=== PATIENT | male | born 1990 | race Caucasian/White ===

== ENCOUNTER 2018-10-07 22:48 | Inpatient (IN) | payer MEDICAID ==
[~2018-10-07] VITALS: Ht 172.7 cm; Wt 76.5 kg
[2018-10-07] MEDS ORDERED: SOD CHLORIDE 0.9% 1,000 ML IV STA (23:18)
[2018-10-07] MEDS ORDERED: SOD CHLORIDE 0.9% 100 ML ONE (23:45)
[2018-10-07] MEDS ORDERED: IOHEXOL 300MG/ML 150 ML BTL ONE (23:45)
[2018-10-08] VITALS (8 sets, daily range): BP systolic 115–131; BP diastolic 59–71; PULSE 60–85; RESP 20; Ht 172.7 cm; Wt 76.5 kg
--- NOTE | 2018-10-08 00:02 | STROKE ---
Date/Time of Note Date/Time of Note DATE: 10/07/18 TIME: 23:36 Patient Information General Patient location: emergency Arrival Date Age 28 Gender male Weight 78.3 kg Clinical Presentation right arm weakness Vital Signs Vital Signs Vital Signs Date Temp Pulse Resp B/P (MAP) Pulse Ox O2 O2 Flow FiO2 Time Delivery Rate 10/07/18 Nasal 4 23:27 Cannula 10/07/18 97.8 94 18 133/87 100 22:54 (102) Patient History Past Medical History None Past Surgical History recent spine surgery Current Medications Allergies: Coded Allergies: No Known Drug Allergies (Verified Allergy, Unknown, 10/07/18) History & Physical History of Present Illness 28 yo M who went to sleep on his couch at 430PM on 10/07 and woke up at about 11:00 PM with flaccid paralysis of the left arm. He denies any other associated symptoms including language deficit, gait imbalance, leg weakness. Review of Systems Constitutional: no symptoms reported All Other Systems: Reviewed and Negative NIH Stroke Scale NIH Stroke Scale [id number] 4 - No movement [id number] Total Score: [id number] Date/Time Recorded DATE: 10/07/18 TIME: 23:36 Submitted By Dayo Kwok t-PA Imaging Review Imaging Reviewed: No Date/Time Imaging Reviewed DATE: 10/07/18 TIME: 23:36 Reason Not Reviewed not processed or available for review t-PA Administration Recommendation: No Weight 78.3 kg Recommedation submitted by Dayo Kwok Recommendations Impression Diagnosis brachial plexus injury Recommendation This is a healthy 28 yo M who fell asleep on his couch and subsequently woke up with flaccid paralysis of his left arm. No other associated weakness. NIHSS was 4 for weakness of the arm. CT studies are pending at this time. TPA was not recommended given that he presented outside the eligible time window, and leading etiology not being ischemic. The patient likely has a brachial plexus injury. Recs: Follow up CT/CTA studies. Low suspicion for dissection. Plan for MRI Brain; if negative, can be discharged with follow up with neurology if symptoms do not improve. DAYO KWOK MD October 07, 2018 23:46
--- NOTE | 2018-10-08 00:37 | ERD ---
ER Documentation Chief Complaint Chief Complaint unble to move left arm/numbness upon waking up around 1800 HPI 28-year-old male no known past medical history other than lumbar disc disease with recent surgical intervention secondary to disc protrusion. The patient states that he went to bed around 4:30 PM. He states that when he woke up just prior to arrival he noticed that he had no sensation to his left arm and could not move his left arm. He denies any slurred speech, facial numbness or tingling. Facial droop. Leg weakness. The only deficit is weakness to the left upper extremity. He states that he was not sleeping weird. He denies any drugs or alcohol. No neck pain, headache fevers or chills or rash. ROS All systems reviewed and are negative except as per history of present illness. Allergies Allergies: Coded Allergies: No Known Drug Allergies (Verified Allergy, Unknown, 10/07/18) PMhx/Soc History of Surgery: Yes (back surgery) Hx Miscellaneous Medical Probl: Yes (herniated disc) Hx Alcohol Use: No Hx Substance Use: No Hx Tobacco Use: No Smoking Status: Never smoker FmHx Family History: No diabetes Physical Exam Vitals Vital Signs Date Temp Pulse Resp B/P (MAP) Pulse Ox O2 O2 Flow FiO2 Time Delivery Rate 10/07/18 Nasal 4 23:27 Cannula 10/07/18 97.8 94 18 133/87 100 22:54 (102) Physical Exam General: Well developed, well nourished, no acute distress Head: Normocephalic, atraumatic. Eyes: Pupils equally reactive, EOM intact ENT: Moist mucous membranes Neck: Supple, no lymphadenopathy Respiratory: Lungs clear bilaterally, no distress Cardiovascular: RRR, no murmurs, rubs, or gallops Abdominal: Soft, non-tender, non-distended, no peritoneal signs : Deferred MSK: No edema, no unilateral swelling Neurologic: Alert and oriented, patient has paralysis and decreased sensation to the left upper extremity. It seems localized to the entirety of the left upper extremity from the shoulder. Unable to abduct at the shoulder. Patient has no facial droop. No other motor weakness to all other extremities. No other focal deficits. NIHSS of 6 Skin: No rash Psych: Normal mood Result Diagram: 10/07/18 2537 10/07/18 5165 Results 24 hrs Laboratory Tests Test 10/07/18 00:55 10/07/18 23:25 Urine Color COLORLESS Urine Clarity CLEAR Urine pH 5.0 Urine Specific [place] 1.027 Urine Ketones NEGATIVE mg/dL Urine Nitrite NEGATIVE mg/dL Urine Bilirubin NEGATIVE mg/dL Urine Urobilinogen NEGATIVE mg/dL Urine Leukocyte Esterase NEGATIVE Jake/ul Urine Microscopic RBC 0 /HPF Urine Microscopic WBC 0 /HPF Urine Hemoglobin 1+ mg/dL Urine Glucose NEGATIVE mg/dL Urine Total Protein NEGATIVE mg/dl White Blood Count 9.7 10^3/ul Red Blood Count 3.89 10^6/ul Hemoglobin 11.6 g/dl Hematocrit 35.8 % Mean Corpuscular Volume 92.0 fl Mean Corpuscular Hemoglobin 29.8 pg Mean Corpuscular Hemoglobin Concent 32.4 g/dl Red Cell Distribution Width 13.5 % Platelet Count 270 10^3/UL Mean Platelet Volume 8.6 fl Immature Granulocytes % 0.400 % Neutrophils % 62.5 % Lymphocytes % 27.4 % Monocytes % 8.3 % Eosinophils % 1.1 % Basophils % 0.3 % Nucleated Red Blood Cells % 0.0 /100WBC Immature Granulocytes # 0.040 10^3/ul Neutrophils # 6.1 10^3/ul Lymphocytes # 2.7 10^3/ul Monocytes # 0.8 10^3/ul Eosinophils # 0.1 10^3/ul Basophils # 0.0 10^3/ul Nucleated Red Blood Cells # 0.0 10^3/ul Prothrombin Time 12.6 Sec Prothrombin Time Ratio 1.0 INR International Normalized Ratio 0.93 Activated Partial Thromboplast Time 25.1 Sec Sodium Level 139 mmol/L Potassium Level 4.2 mmol/L Chloride Level 101 mmol/L Carbon Dioxide Level 28 mmol/L Anion Gap 10 Blood Urea Nitrogen 17 mg/dl Creatinine 0.92 mg/dl Est Glomerular Filtrat Rate mL/min > 60 mL/min Glucose Level 86 mg/dl Hemoglobin A1c 5.0 % Calcium Level 9.5 mg/dl Creatine Kinase 100 IU/L Creatine Kinase Index 2.7 Creatinine Kinase MB (Mass) 2.69 ng/ml Troponin I < 0.012 ng/ml Triglycerides Level 223 mg/dl Cholesterol Level 187 mg/dl LDL Cholesterol, Calculated 79 mg/dl HDL Cholesterol 63 mg/dl Cholesterol/HDL Ratio 2.9 RATIO Ethyl Alcohol Level < 10.0 mg/dl Current Medications Medications Dose Sig/Rosibel Start Time Status Last (Trade) Ordered Route PRN Stop Time Admin Dose Reason Admin Sodium 1,000 ml @ Q1H STAT 10/07/18 DC 10/08/18 Chloride 1,000 mls/hr IV 23:18 10/08/18 00:02 00:17 Sodium 100 ml @ ud STK-MED 10/07/18 DC 10/07/18 Chloride ONCE .ROUTE 23:45 10/07/18 23:47 23:46 Iohexol 150 ml STK-MED 10/07/18 DC 10/07/18 (Omnipaque ONCE .ROUTE 23:45 10/07/18 23:47 300mg/ ml) 23:46 Aspirin 162 mg ONCE ONCE 10/08/18 DC 10/08/18 (Aspirin) PO 01:00 10/08/18 01:18 01:01 Ondansetron 4 mg ER BRIDGE 10/08/18 HCl (Zofran PRN IV 01:30 10/09/18 Inj) NAUSEA/VOMITI 01:29 NG 650 mg ER BRIDGE 10/08/18 Acetaminophen PRN PO 01:30 10/09/18 (Tylenol .MILD PAIN 01:29 Tab) 1-3 OR TEMP Procedures/MDM EKG, MONITORS, & DIAGNOSTIC IMAGING: EKG: I reviewed and interpreted a 12-lead EKG. Rhythm: Normal sinus rhythm Ectopy: None Arrhythmia: None Intervals: No abnormalities ST segments: No elevations or depressions T waves: No contiguous inversions Interpretation: No acute cardiac ischemia Chest x-ray: I reviewed and interpreted a 1 view of the chest Mediastinum: No enlargement Cardiac silhouette: No cardiomegaly Airspace: Clear lung quiñones bilaterally without evidence of pneumothorax Bones: No evidence of fracture Interpretation: No acute cardiopulmonary process CT Brain: No acute process per radiologist read CTA Head and Neck: No acute process per radiologist read PROCEDURES: Splint Application Note: Splint type: sling Extremity: :LUE Indication: paralysis The patient was consented at bedside prior to splint application and states understanding of risks, benefits, and alternatives. The patient was neurovascularly intact prior to and status post application of the splint. The patient tolerated the procedure well and there were no complications. LAB INTERPRETATION: No acute process MEDICAL DECISION MAKING: The patient's presentation is consistent with paralysis of the left upper extremity. Last known well time is 4:30 PM. Given recent surgery and last known well time the patient is not a TPA candidate given presentation outside of a 4-1/2-hour timeframe window. Additionally I believe the patient's symptomatology are more likely related to cervical radiculopathy versus brachial plexus injury rather than acute stroke syndrome. For all these reasons the risks of TPA outweigh any benefits. Additionally I do not believe the patient is a good interventional candidate but CT and CTA will be ordered. Given the patient's neurologic deficit noted within 24 hours a code stroke was initiated. ER COURSE: Stroke assessment and timing: Last known well time: 4:30 PM Stroke code activation: 2319 NIHSS: 6 TPA decision-making: No TPA as documented above presentation outside of the 4-1/2-hour window Interventional decision-making: No interventional candidate given no LVO on CTA Stroke neurologist on-call: Dr. Kwok Critical Care Note: Total time: 30 minutes Indication/Organ System Threat: Acute neurologic deficit and stroke code activation that requires emergent evaluation and assessment to prevent neurologic compromising collapse. I spent the above amount of critical care time with the patient, not including billable procedures. This included chart review, consultations, repeat bedside evaluations, and titration of appropriate medications to prevent cardiopulmonary or respiratory collapse. I kept the patient and/or family informed of laboratory and diagnostic imaging results throughout the emergency room course. The patient CT and CTA are negative. Stroke neurologist evaluation agrees with my assessment likely brachial plexus injury however recommends MRI imaging of the brain and cervical spine. Patient will be admitted for imaging work-up. Patient was immobilized with sling. Aspirin provided. Patient is right-hand dominant. DISPOSITION PLAN: Telemetry admission Accepting care team and consultations: I discussed the current laboratory data, diagnostic imaging and emergency care provided. Admitting team: Dr. Jon Admitting team indication: Insurance directed Departure Diagnosis: Primary Impression: Paralysis of left upper extremity Condition: Stable LISSET HONG MD October 08, 2018 00:37
[2018-10-08] MEDS ORDERED: ASPIRIN 81 MG TAB PO ONE (01:00)
[2018-10-08] MEDS ORDERED: ONDANSETRON 4 MG INJ IV PRN ×2 (01:30→02:00)
[2018-10-08] MEDS ORDERED: ACETAMINOPHEN 325 MG TAB PO PRN ×2 (01:30→02:00)
[2018-10-08] MEDS ORDERED: HYDROCODONE/APAP (5/325) TAB PO PRN (02:00)
[2018-10-08] MEDS ORDERED: ALBUTEROL/IPRATROPIUM (NEB) 3 ML AMP HHN PRN (02:00)
[2018-10-08] MEDS ORDERED: NACL 0.9% 3 ML SYG IV SCH (02:00)
--- NOTE | 2018-10-08 08:14 | HP ---
Date/Time of Note Date/Time of Note DATE: 10/08/18 TIME: 08:07 Assessment/Plan VTE Prophylaxis Pharmacological prophylaxis: heparin Lines/Catheters IV Catheter Type (from Nrsg): Saline Lock Assessment/Plan Assessment/Plan 28-year-old male with a history of herniated disc and back surgery who woke up on the couch with acute onset left upper extremity paralysis worrisome for brachial plexus injury PLAN -Head CT and a CT Dian of the head and neck negative for acute findings -Telemetry neurologist thinks left arm paralysis secondary to brachial plexus injury -Follow-up MRI of the brain -In-house neurology consult -PT/OT eval Result Diagram: 10/08/1852510/08/18525 Results 24hrs Laboratory Tests Test 10/07/18 23:25 10/08/18 05:20 10/08/18 05:26 White Blood Count 9.7 10.3 Red Blood Count 3.89 L 3.86 L Hemoglobin 11.6 L 11.6 L Hematocrit 35.8 L 35.5 L Mean Corpuscular Volume 92.0 92.0 Mean Corpuscular Hemoglobin 29.8 30.1 Mean Corpuscular Hemoglobin Concent 32.4 32.7 Red Cell Distribution Width 13.5 13.5 Platelet Count 270 281 Mean Platelet Volume 8.6 8.8 Immature Granulocytes % 0.400 0.400 Neutrophils % 62.5 61.2 Lymphocytes % 27.4 26.5 Monocytes % 8.3 9.4 Eosinophils % 1.1 2.0 Basophils % 0.3 0.5 Nucleated Red Blood Cells % 0.0 0.0 Immature Granulocytes # 0.040 H 0.040 H Neutrophils # 6.1 6.3 Lymphocytes # 2.7 2.7 Monocytes # 0.8 1.0 H Eosinophils # 0.1 0.2 Basophils # 0.0 0.1 Nucleated Red Blood Cells # 0.0 0.0 Prothrombin Time 12.6 Prothrombin Time Ratio 1.0 INR International Normalized Ratio 0.93 Activated Partial Thromboplast Time 25.1 Sodium Level 139 140 Potassium Level 4.2 4.0 Chloride Level 101 102 Carbon Dioxide Level 28 30 Anion Gap 10 8 Blood Urea Nitrogen 17 15 Creatinine 0.92 0.79 Est Glomerular Filtrat Rate mL/min > 60 > 60 Glucose Level 86 97 Hemoglobin A1c 5.0 5.0 Calcium Level 9.5 9.7 Creatine Kinase 100 103 Creatine Kinase Index 2.7 2.4 Creatinine Kinase MB (Mass) 2.69 H 2.47 H Troponin I < 0.012 < 0.012 Triglycerides Level 223 H 139 Cholesterol Level 187 188 LDL Cholesterol, Calculated 79 99 HDL Cholesterol 63 61 Cholesterol/HDL Ratio 2.9 3.0 Ethyl Alcohol Level < 10.0 H Magnesium Level 1.9 Total Bilirubin 0.4 Direct Bilirubin 0.00 Indirect Bilirubin 0.4 Aspartate Amino Transf (AST/SGOT) 35 Alanine Aminotransferase (ALT/SGPT) 47 Alkaline Phosphatase 52 Total Protein 6.8 Albumin 4.2 Globulin 2.60 Albumin/Globulin Ratio 1.61 Thyroid Stimulating Hormone (TSH) Pending HPI/ROS Admit Date/Time Admit Date/Time October 08, 2018 at 01:14 Hx of Present Illness This is a 28-year-old male with a history of herniated disc and back surgery who presents to the ER complaining of left upper extremity weakness and numbness. Reportedly, patient woke up on the couch with paralysis of left upper extremity. He denied trauma. On my examination, patient has required constant stimulation to keep him awake. He denied slurred speech, facial droop, seizure-like activity, headache or visual disturbance. When he presented to ER, vitals were stable. Head CT and CT Angio of the head and neck negative for acute findings. Patient was evaluated by the telemetry neurologist who felt left upper extremity paralysis secondary to brachial plexus injury. He recommended MRI of the brain and follow-up with neurology. PMH/Family/Social Past Medical History Medical History: other (See HPI) Medications Current Medications Ondansetron HCl (Zofran Inj) 4 mg ER BRIDGE PRN IV NAUSEA/VOMITING; Start 10/08/18 at 01:30; Stop 10/09/18 at 01:29 Acetaminophen (Tylenol Tab) 650 mg ER BRIDGE PRN PO .MILD PAIN 1-3 OR TEMP; Start 10/08/18 at 01:30; Stop 10/09/18 at 01:29 IV Flush (NS 3 ml) 3 ml PER PROTOCOL IV ; Start 10/08/18 at 02:00 Ondansetron HCl (Zofran Inj) 4 mg Q6H PRN IV NAUSEA/VOMITING; Start 10/08/18 at 02:00 Aspirin (Aspirin) 81 mg DAILY PO ; Start 10/08/18 at 09:00 Acetaminophen (Tylenol Tab) 650 mg Q6H PRN PO .PAIN 1-3 OR TEMP; Start 10/08/18 at 02:00 Acetaminophen/ Hydrocodone Bitart (Walker (5/325)) 1 tab Q6H PRN PO .PAIN 4-6; Start 10/08/18 at 02:00 Enoxaparin Sodium (Lovenox) 40 mg DAILY SC ; Start 10/08/18 at 09:00 Albuterol/ Ipratropium (Duoneb) 3 ml Q2H RESP THERAPY PRN HHN SHORTNESS OF BREATH; Start 10/08/18 at 02:00 Coded Allergies: No Known Drug Allergies (Verified Allergy, Unknown, 10/08/18) Past Surgical History Past Surgical Hx: other (HPI) Family History Significant Family History: no pertinent family hx Social History Alcohol Use: none Smoking Status: Never smoker Drug Use: marijuana Exam/Review of Systems Vital Signs Vitals Vital Signs Date Temp Pulse Resp B/P (MAP) Pulse Ox O2 O2 Flow FiO2 Time Delivery Rate 10/08/18 98.0 64 16 109/52 98 Room Air 07:59 (71) 64 10/08/18 4.0 01:49 Exam Constitutional: other (Sleepy, but arousable. At times not answering question appropriately) Head: normocephalic, atraumatic Eyes: EOMI, PERRL Respiratory: clear to auscultation, normal air movement Cardiovascular: regular rate and rhythm, nl pulses Gastrointestinal: soft, non-tender Extremities: other (Left upper extremity paralysis) Neurological: other (Significantly decreased strength in the left upper extremity with a decreased handgrip as well. Sensations are diminished on the left upper extremity to light touch) ALE SANTILLAN MD October 08, 2018 08:14
[2018-10-08] MEDS: ASPIRIN 81 MG TAB PO SCH (09:21)
[2018-10-08] MEDS: ENOXAPARIN 40 MG/0.4 ML SYG SC SCH (09:43)
--- NOTE | 2018-10-08 10:26 | EN ---
Date/Time of Note Date/Time of Note DATE: 10/08/18 TIME: 10:25 Event Note Medicine Medicine Event Note 28-year-old male who was admitted earlier today by my colleague who had presented with left upper extremity paresis. Code stroke was activated in the emergency room, he was seen by telemetry neurology who made a tentative diagnosis of brachial plexus injury and low likelihood of ischemic brain injury. CT scan of the brain and head CT was negative. Neurology does recommend MRI of the brain which is pending. Urine toxicology screen positive only for cannabinoids. TSH was mildly elevated. Patient left upper extremity remains completely paretic. Patient is understandably very anxious about his symptoms. 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 It is unlikely that this has anything to do with his symptoms, but we have to obtain records to see what exactly was done. Will order MRI of C-spine in addition to MRI of the brain. Disposition: follow-up MRI findings, consult in-house neurology, in-house physical therapy, further interventions per course. TINO PAGAN October 08, 2018 10:26
--- NOTE | 2018-10-08 15:18 | CONS ---
Assessment/Plan Assessment/Plan Hospital Course 28 yo M without significant PMH who presents for evaluation of LUE weakness x 1 day... for which neurology is consulted. Most clinically consistent with an acute peripheral nervous system process. A focal [employer] process is less likely, though not yet excluded. CT/CTA H is unremarkable P: Await MRI brain, C spine for further characterization Add ESR, CRP ASA/Lipitor pending the above Cont workup and other medical management per primary PT/OT as necessary Will follow clinically to recommend neurologic studies, as necessary Consultation Date/Type/Reason Admit Date/Time October 08, 2018 at 01:14 Type of Consult Neurology Reason for Consultation LUE weakness Requesting Provider: TINO PAGAN Date/Time of Note DATE: 10/08/18 TIME: 15:18 24 HR Interval Summary Free Text/Dictation 28 yo M with hx of History was obtained from pt and chart review. The pt states that he woke up on the couch and was unable to move his L arm. He does not remember if he slept on it. He denies recent arm or back trauma. He does state that he had a lumbar spine surgery recently. He states that he plays golf and swings with his R arm. He currently denies arm pain. It is elsewhere noted: Hx of Present Illness This is a 28-year-old male with a history of herniated disc and back surgery who presents to the ER complaining of left upper extremity weakness and numbness. Reportedly, patient woke up on the couch with paralysis of left upper extremity. He denied trauma. On my examination, patient has required constant stimulation to keep him awake. He denied slurred speech, facial droop, seizure-like activity, headache or visual disturbance. When he presented to ER, vitals were stable. Head CT and CT Angio of the head and neck negative for acute findings. Patient was evaluated by the telemetry neurologist who felt left upper extremity paralysis secondary to brachial plexus injury. He recommended MRI of the brain and follow-up with neurology. Exam Vital Signs Vitals Vital Signs Date Temp Pulse Resp B/P (MAP) Pulse Ox O2 O2 Flow FiO2 Time Delivery Rate 10/08/18 97.9 65 20 115/71 99 11:16 (86) 10/08/18 Room Air 07:59 10/08/18 4.0 01:49 Exam PE: Gen Appearance: No Apparent Distress HEENT: Normocephalic Cardiovascular: Regular rate Lungs: Clear bilaterally Abdomen: Soft Extremities: Dry NE: The patient was alert and oriented.. Language was normal. Fund of knowledge was normal. Pupils were equal and reactive to light. There was no afferent pupillary defect. Visual quiñones were normal. Funduscopic examination was limited. Ptosis was absent. There was no nystagmus. Facial sensation was normal. Face was symmetric with normal strength. Hearing was intact. Palate movements were normal. Neck strength was normal. There was normal tongue bulk and speed of movement. Tone was normal. Muscle bulk was normal. I did not see fasciculations. R arm and legs were strong. L arm was plegic. Vibration sensation, temperature and pinprick sensation was diminished in the L arm. Rapid alternating movements were normal. There was no dysmetria. There was no intention tremor. Gait was deferred due to bedrest. R arm and leg reflexes were 2+. L arm reflexes were absent. Robles's sign was absent. Plantar responses were flexor. CONNIE VACA NP October 08, 2018 15:18
--- NOTE | 2018-10-08 17:51 | RADRPT ---
Echocardiogram Report Patient Name: Holly ANSARI ID: [id number] : 1990 (28y 5m)Study Date: 10/08/2018 8:20:38 AM Gender: MAccession #: [id number] Tech: Jeremy Patel [facility] Location: [facility] Ref.Physician: ALE SANTILLAN Height(Cm): BSA: Weight(Kg): Quality: AdequateAccount #: Procedures: Echocardiographic Report: Transthoracic echocardiogram with complete 2D, M-Mode, and doppler examination. Indications: Focal weakness. Measurements: 2D/M Mode Doppler Measurement Value Normal Range Measurement Value Normal Range LVIDd 2D 4.1 [ 4.2 - 5.8 ] cm AV Peak Santiago 1.4 [ 100.0 - 170.0 ] cm/sec LVIDs 2D 2.8 [ 2.5 - 4.0 ] cm AV Peak PG 8.0 [ 2.0 - 9.0 ] mmHg LVPWd 2D 0.9 [ 0.6 - 1.0 ] cm LVOT Peak Santiago 1.1 [ 70.0 - 110.0 ] cm/sec IVSd 2D 1.0 [ 0.6 - 1.0 ] cm LVOT Peak PG 5.0 [ 2.0 - 6.0 ] mmHg AoR Diam 2D 2.6 [ 2.6 - 3.4 ] cm MV E Peak Santiago 1.0 [ 60.0 - 130.0 ] cm/sec EDV 2D 75.5 [ 62.0 - 150.0 ] ml MV A Peak Santiago 0.6 [ 100.0 - 120.0 ] cm/sec ESV 2D 28.3 [ 21.0 - 61.0 ] ml MV E/A 1.7 [ 0.8 - 1.5 ] ratio EF 2D 62.5 [ 52.0 - 72.0 ] percent MV Decel Time 201 [ 104 - 258 ] msec LA Dimen 2D 3.2 [ 3.0 - 4.0 ] cm Lat E` Santiago 0.2 [ 10.0 - 15.0 ] cm/sec Lateral E/E` 5.6 [ 1.0 - 2.0 ] ratio MV E/A 1.7 [ 0.8 - 1.5 ] ratio TR Peak Santiago 2.5 [ 100.0 - 280.0 ] cm/sec TR Peak PG 25.0 mmHg RVSP 28.0 [ 10.0 - 36.0 ] mmHg Findings: Left Ventricle: Normal left ventricular systolic function. Normal left ventricular cavity size. Normal left ventricular wall thickness. Ejection fraction is visually estimated at 60 %. Tissue Doppler/Mitral Doppler indices are consistent with pseudonormalization with mildly elevated left atrial pressure (Stage II diastolic dysfunction). Right Ventricle: Normal right ventricular size. Normal right ventricular systolic function. Left Atrium: The left atrium is normal in size. Right Atrium: There is mild enlargement of right atrium. Mitral Valve: Mild mitral leaflet calcification. Mild mitral annular calcification. Trace mitral regurgitation. Aortic Valve: No hemodynamically significant aortic stenosis by doppler. Aortic cusps appear mildly calcified. Tricuspid Valve: Normal appearance of the tricuspid valve. Estimated peak PA systolic pressure 28 mmHg. There is mild tricuspid regurgitation. Pericardium: Normal pericardium with no significant pericardial effusion. Aorta: Normal aortic root. IVC: Normal size and normal respiratory collapse consistent with normal right atrial pressure. Conclusions: Normal left ventricular systolic function. Normal left ventricular cavity size. Normal left ventricular wall thickness. Ejection fraction is visually estimated at 60 %. Tissue Doppler/Mitral Doppler indices are consistent with pseudonormalization with mildly elevated left atrial pressure (Stage II diastolic dysfunction). There is mild enlargement of right atrium. Mild mitral leaflet calcification. Mild mitral annular calcification. Trace mitral regurgitation. Normal appearance of the tricuspid valve. Estimated peak PA systolic pressure 28 mmHg. There is mild tricuspid regurgitation. Electronically Signed By: Kyler Byrne 2018-10-08 17:51:20 PDT
[2018-10-08] MEDS: ATORVASTATIN 40 MG TAB PO SCH (21:00)
[2018-10-09] VITALS (9 sets, daily range): BP systolic 118–122; BP diastolic 56–66; PULSE 64–97; RESP 18–20
[2018-10-09] MEDS: ASPIRIN 81 MG TAB PO SCH (08:48)
[2018-10-09] MEDS: ENOXAPARIN 40 MG/0.4 ML SYG SC SCH (09:39)
--- NOTE | 2018-10-09 13:13 | PN ---
Date/Time of Note Date/Time of Note DATE: 10/09/18 TIME: 13:11 Assessment/Plan VTE Prophylaxis Risk score (from Nsg)>0 risk: 0 SCD applied (from Ns): No SCD contraindicated: low risk/ambulating Pharmacological prophylaxis: NA/contraindicated Pharm contraindication: low risk/ambulating Lines/Catheters IV Catheter Type (from Nrs): Saline Lock Assessment/Plan Hospital Course S: no changes, LUE remains paretic O : General: A&O x3, answering questions appropriately HEENT: NC/ AT. PERRL. EOM intact Neck: supple CVS: S1, S2, RRR. no murmurs. no pain on chest wall palpation Lungs: CTA b/l. no wheezing or rhonchi Abd: soft, nontender, +BS Ext: LUE completely paretic skin: no rashes assessment and plan: 28-year-old male who was admitted earlier today by my colleague who had presented with left upper extremity paresis. Code stroke was activated in the emergency room, he was seen by telemetry neurology who made a tentative diagnosis of brachial plexus injury and low likelihood of ischemic brain injury. CT scan of the brain and head CT was negative. Neurology does recommend MRI of the brain which is pending. Urine toxicology screen positive only for cannabinoids. TSH was mildly elevated. Patient left upper extremity remains completely paretic. Patient is understandably very anxious about his symptoms. Patient recently had back surgery at the 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 It is unlikely that this has anything to do with his symptoms, records reviewed, no concerning findings noted Will order MRI of L shoulder Disposition: f/u shoulder MRI, final neurology recs, OT eval Patient likely needs EMG and peripheral senior contract specialist, may need to go to [facility] Provide sling steroids? Result Diagram: 10/09/1845 10/09/18 0545 Results 24hrs Laboratory Tests Test 10/09/18 05:45 White Blood Count 5.4 # Red Blood Count 3.69 L Hemoglobin 11.0 L Hematocrit 34.1 L Mean Corpuscular Volume 92.4 Mean Corpuscular Hemoglobin 29.8 Mean Corpuscular Hemoglobin Concent 32.3 Red Cell Distribution Width 13.2 Platelet Count 274 Mean Platelet Volume 8.9 Immature Granulocytes % 0.400 Neutrophils % 39.0 Lymphocytes % 43.1 Monocytes % 11.5 H Eosinophils % 5.6 Basophils % 0.4 Nucleated Red Blood Cells % 0.0 Immature Granulocytes # 0.020 Neutrophils # 2.1 Lymphocytes # 2.3 Monocytes # 0.6 Eosinophils # 0.3 Basophils # 0.0 Nucleated Red Blood Cells # 0.0 Erythrocyte Sedimentation Rate 5 Sodium Level 141 Potassium Level 4.7 Chloride Level 101 Carbon Dioxide Level 32 H Anion Gap 8 Blood Urea Nitrogen 14 Creatinine 0.72 Est Glomerular Filtrat Rate mL/min > 60 Glucose Level 83 Calcium Level 9.4 Phosphorus Level 6.2 H Magnesium Level 2.1 C-Reactive Protein 0.6 Exam/Review of Systems Exam Vitals Vital Signs Date Temp Pulse Resp B/P (MAP) Pulse Ox O2 O2 Flow FiO2 Time Delivery Rate 10/09/18 90 12:01 10/09/18 98.3 20 120/66 100 11:32 (84) 10/08/18 Room Air 07:59 10/08/18 4.0 01:49 Results Results 24hrs Laboratory Tests Test 10/09/18 05:45 White Blood Count 5.4 # Red Blood Count 3.69 L Hemoglobin 11.0 L Hematocrit 34.1 L Mean Corpuscular Volume 92.4 Mean Corpuscular Hemoglobin 29.8 Mean Corpuscular Hemoglobin Concent 32.3 Red Cell Distribution Width 13.2 Platelet Count 274 Mean Platelet Volume 8.9 Immature Granulocytes % 0.400 Neutrophils % 39.0 Lymphocytes % 43.1 Monocytes % 11.5 H Eosinophils % 5.6 Basophils % 0.4 Nucleated Red Blood Cells % 0.0 Immature Granulocytes # 0.020 Neutrophils # 2.1 Lymphocytes # 2.3 Monocytes # 0.6 Eosinophils # 0.3 Basophils # 0.0 Nucleated Red Blood Cells # 0.0 Erythrocyte Sedimentation Rate 5 Sodium Level 141 Potassium Level 4.7 Chloride Level 101 Carbon Dioxide Level 32 H Anion Gap 8 Blood Urea Nitrogen 14 Creatinine 0.72 Est Glomerular Filtrat Rate mL/min > 60 Glucose Level 83 Calcium Level 9.4 Phosphorus Level 6.2 H Magnesium Level 2.1 C-Reactive Protein 0.6 Medications Medication Current Medications IV Flush (NS 3 ml) 3 ml PER PROTOCOL IV ; Start 10/08/18 at 02:00 Ondansetron HCl (Zofran Inj) 4 mg Q6H PRN IV NAUSEA/VOMITING; Start 10/08/18 at 02:00 Aspirin (Aspirin) 81 mg DAILY PO Last administered on 10/09/18at 08:48; Admin Dose 81 MG; Start 10/08/18 at 09:00 Acetaminophen (Tylenol Tab) 650 mg Q6H PRN PO .PAIN 1-3 OR TEMP; Start 10/08/18 at 02:00 Acetaminophen/ Hydrocodone Bitart ([place] (5/325)) 1 tab Q6H PRN PO .PAIN 4-6; Start 10/08/18 at 02:00 Enoxaparin Sodium (Lovenox) 40 mg DAILY SC Last administered on 10/09/18at 09:39; Admin Dose 40 MG; Start 10/08/18 at 09:00 Albuterol/ Ipratropium (Duoneb) 3 ml Q2H RESP THERAPY PRN HHN SHORTNESS OF BREATH; Start 10/08/18 at 02:00 Atorvastatin Calcium (Lipitor) 40 mg HS PO ; Start 10/08/18 at 21:00 Lorazepam (Ativan) 1 mg ONCE ONCE IV ; Start 10/09/18 at 13:30; Stop 10/09/18 at 13:31 TINO PAGAN October 09, 2018 13:13
[2018-10-09] MEDS ORDERED: LORAZEPAM 2 MG INJ IV ONE (13:30)
--- NOTE | 2018-10-09 14:26 | CONS ---
Assessment/Plan Assessment/Plan Hospital Course 28 yo M without significant PMH who presents for evaluation of LUE weakness x 1 day... for which neurology is consulted. Most clinically consistent with an acute peripheral nervous system process. A focal COMMUNICATIONS TOWER CLIMBER process is less likely, though not yet excluded. CT/CTA H is unremarkable MRI brain/C spine is unremarkable. ESR, CRP wnl P: Await MRI L shoulder Cont workup and other medical management per primary PT/OT as necessary Recommend EMG/NCS as outpatient Will follow clinically Consultation Date/Type/Reason Admit Date/Time October 08, 2018 at 01:14 Type of Consult Neurology Reason for Consultation LUE weakness Requesting Provider: TINO PAGAN Date/Time of Note DATE: 10/09/18 TIME: 14:25 24 HR Interval Summary Free Text/Dictation Continues acute care. S/p MRI brain, C-spine. Discharged from PT/OT. Pt states that he is still unable to move his arm and that his sensation has only very slightly improved. Exam Vital Signs Vitals Vital Signs Date Temp Pulse Resp B/P (MAP) Pulse Ox O2 O2 Flow FiO2 Time Delivery Rate 10/09/18 90 12:01 10/09/18 98.3 20 120/66 100 11:32 (84) 10/08/18 Room Air 07:59 10/08/18 4.0 01:49 Exam PE: Gen Appearance: No Apparent Distress HEENT: Normocephalic Cardiovascular: Regular rate Lungs: Clear bilaterally Abdomen: Soft Extremities: Dry NE: The patient was alert and oriented.. Language was normal. Fund of knowledge was normal. Pupils were equal and reactive to light. There was no afferent pupillary defect. Visual quiñones were normal. Funduscopic examination was limited. Ptosis was absent. There was no nystagmus. Facial sensation was normal. Face was symmetric with normal strength. Hearing was intact. Palate movements were normal. Neck strength was normal. There was normal tongue bulk and speed of movement. Tone was normal. Muscle bulk was normal. I did not see fasciculations. R arm and legs were strong. L arm was plegic. Vibration sensation was diminished in the L pinky and middle finger and thumb. Pinprick sensation was diminished in the L arm from the fingertips of the L hand up to just above the nipple line. Rapid alternating movements were normal. There was no dysmetria. There was no intention tremor. Gait was deferred due to bedrest. R arm and leg reflexes were 2+. L arm reflexes were absent. Robles's sign was absent. Plantar responses were flexor. CONNIE VACA NP October 09, 2018 14:26
--- NOTE | 2018-10-09 16:55 | CONS ---
Assessment/Plan Assessment/Plan Assessment/Plan (Daily) Sudden monoplegia concerning for brachial plexus injury or spinal vascular malformation. Time course is unusual for non-traumatic etiology. Could be brachial plexitis ([place] syndrome), but EMG is critical in diagnosis. 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 He has never had this before and it has not changed since it started. He had some tingling initially, but now is quite numb in the arm, but does not have anesthesia. He denies trauma or shoulder pain. Past Medical History Medical History: other (See HPI) Home Meds No Active Prescriptions or Reported Meds Medications Current Medications IV Flush (NS 3 ml) 3 ml PER PROTOCOL IV ; Start 10/08/18 at 02:00 Ondansetron HCl (Zofran Inj) 4 mg Q6H PRN IV NAUSEA/VOMITING; Start 10/08/18 at 02:00 Aspirin (Aspirin) 81 mg DAILY PO Last administered on 10/09/18at 08:48; Admin Dos e 81 MG; Start 10/08/18 at 09:00 Acetaminophen (Tylenol Tab) 650 mg Q6H PRN PO .PAIN 1-3 OR TEMP; Start 10/08/18 at 02:00 Acetaminophen/ Hydrocodone Bitart ([place] (5/325)) 1 tab Q6H PRN PO .PAIN 4-6; Start 10/08/18 at 02:00 Enoxaparin Sodium (Lovenox) 40 mg DAILY SC Last administered on 10/09/18at 09:39; Admin Dose 40 MG; Start 10/08/18 at 09:00 Albuterol/ Ipratropium (Duoneb) 3 ml Q2H RESP THERAPY PRN HHN SHORTNESS OF BREATH; Start 10/08/18 at 02:00 Atorvastatin Calcium (Lipitor) 40 mg HS PO ; Start 10/08/18 at 21:00 Allergies: Coded Allergies: No Known Drug Allergies (Verified Allergy, Unknown, 10/08/18) Past Surgical History Past Surgical Hx: other (HPI) Social History Alcohol Use: none Smoking Status: Never smoker Drug Use: marijuana Exam/Review of Systems Exam Vitals Vital Signs Date Temp Pulse Resp B/P (MAP) Pulse Ox O2 O2 Flow FiO2 Time Delivery Rate 10/09/18 98.3 78 20 122/61 98 15:20 (81) 10/08/18 Room Air 07:59 10/08/18 4.0 01:49 Exam 0/5 in LUE 5/5 otherwise numbness throughout LUE shoulder ROM intact No movement when arm dropped from height Results Result Diagram: 10/09/18 0545 10/09/18 0545 Results 24hrs Laboratory Tests Test 10/09/18 05:45 White Blood Count 5.4 # Red Blood Count 3.69 L Hemoglobin 11.0 L Hematocrit 34.1 L Mean Corpuscular Volume 92.4 Mean Corpuscular Hemoglobin 29.8 Mean Corpuscular Hemoglobin Concent 32.3 Red Cell Distribution Width 13.2 Platelet Count 274 Mean Platelet Volume 8.9 Immature Granulocytes % 0.400 Neutrophils % 39.0 Lymphocytes % 43.1 Monocytes % 11.5 H Eosinophils % 5.6 Basophils % 0.4 Nucleated Red Blood Cells % 0.0 Immature Granulocytes # 0.020 Neutrophils # 2.1 Lymphocytes # 2.3 Monocytes # 0.6 Eosinophils # 0.3 Basophils # 0.0 Nucleated Red Blood Cells # 0.0 Erythrocyte Sedimentation Rate 5 Sodium Level 141 Potassium Level 4.7 Chloride Level 101 Carbon Dioxide Level 32 H Anion Gap 8 Blood Urea Nitrogen 14 Creatinine 0.72 Est Glomerular Filtrat Rate mL/min > 60 Glucose Level 83 Calcium Level 9.4 Phosphorus Level 6.2 H Magnesium Level 2.1 C-Reactive Protein 0.6 Imaging Imaging No abnormalities on MRI of brain and spine or CTA head/neck Medications Medication Current Medications IV Flush (NS 3 ml) 3 ml PER PROTOCOL IV ; Start 10/08/18 at 02:00 Ondansetron HCl (Zofran Inj) 4 mg Q6H PRN IV NAUSEA/VOMITING; Start 10/08/18 at 02:00 Aspirin (Aspirin) 81 mg DAILY PO Last administered on 10/09/18at 08:48; Admin Dose 81 MG; Start 10/08/18 at 09:00 Acetaminophen (Tylenol Tab) 650 mg Q6H PRN PO .PAIN 1-3 OR TEMP; Start 10/08/18 at 02:00 Acetaminophen/ Hydrocodone Bitart ([place] (5/325)) 1 tab Q6H PRN PO .PAIN 4-6; Start 10/08/18 at 02:00 Enoxaparin Sodium (Lovenox) 40 mg DAILY SC Last administered on 10/09/18at 09:39; Admin Dose 40 MG; Start 10/08/18 at 09:00 Albuterol/ Ipratropium (Duoneb) 3 ml Q2H RESP THERAPY PRN HHN SHORTNESS OF BREATH; Start 10/08/18 at 02:00 Atorvastatin Calcium (Lipitor) 40 mg HS PO ; Start 10/08/18 at 21:00 SALLY PADRON MD October 09, 2018 16:55
[2018-10-09] MEDS: ATORVASTATIN 40 MG TAB PO SCH (20:09)
[2018-10-10] VITALS (7 sets, daily range): BP systolic 105–128; BP diastolic 52–70; PULSE 63–82; RESP 18–20
[2018-10-10] MEDS: ASPIRIN 81 MG TAB PO SCH (08:34)
[2018-10-10] MEDS: ENOXAPARIN 40 MG/0.4 ML SYG SC SCH (08:38)
--- NOTE | 2018-10-10 13:41 | PN ---
Date/Time of Note Date/Time of Note DATE: 10/10/18 TIME: 13:38 Assessment/Plan VTE Prophylaxis Risk score (from Nsg)>0 risk: 0 SCD applied (from Nsg): No SCD contraindicated: low risk/ambulating Pharmacological prophylaxis: NA/contraindicated Pharm contraindication: low risk/ambulating Lines/Catheters IV Catheter Type (from Nrsg): Saline Lock Assessment/Plan Hospital Course S: no changes, LUE remains paretic O : General: A&O x3, answering questions appropriately HEENT: NC/ AT. PERRL. EOM intact Neck: supple CVS: S1, S2, RRR. no murmurs. no pain on chest wall palpation Lungs: CTA b/l. no wheezing or rhonchi Abd: soft, nontender, +BS Ext: LUE completely paretic skin: no rashes assessment and plan: 28-year-old male who was admitted earlier today by my colleague who had presented with left upper extremity paresis. Code stroke was activated in the emergency room, he was seen by telemetry neurology who made a tentative diagnosis of brachial plexus injury and low likelihood of ischemic brain injury. CT scan of the brain and head CT was negative. Neurology does recommend MRI of the brain which is pending. Urine toxicology screen positive only for cannabinoids. TSH was mildly elevated. Patient left upper extremity remains completely paretic. Patient is understandably very anxious about his symptoms. 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 It is unlikely that this has anything to do with his symptoms, records reviewed, no concerning findings noted MRI shoulder reviewed -no new concerning findings -appreciate nsg review abd recommendations Disposition: patient is open to trying steroids, I explained that it may not improve his symptoms and may actually make subsequent diagnosis a little bit difficult, in that if he gets an EMG in the near future, it may be nonconclusive. But in the setting of possible inflammation it may help. Patient wants to try this. He is requesting to be observed in-house, day while he is on steroids to see if there is improvement by tomorrow. Will monitor Result Diagram: 10/09/18 4745 10/09/18 4912 Exam/Review of Systems Exam Vitals Vital Signs Date Temp Pulse Resp B/P (MAP) Pulse Ox O2 O2 Flow FiO2 Time Delivery Rate 10/10/18 98.3 63 20 119/63 95 11:42 (81) 10/10/18 Room Air 04:48 10/08/18 4.0 01:49 Intake and Output 10/09/18 10/09/18 10/10/18 1515:00 23:00 07:00 IntakeIntake Total 850 ml 400 ml BalanceBalance 850 ml 400 ml Medications Medication Current Medications IV Flush (NS 3 ml) 3 ml PER PROTOCOL IV ; Start 10/08/18 at 02:00 Ondansetron HCl (Zofran Inj) 4 mg Q6H PRN IV NAUSEA/VOMITING; Start 10/08/18 at 02:00 Aspirin (Aspirin) 81 mg DAILY PO Last administered on 10/10/18at 08:34; Admin Dose 81 MG; Start 10/08/18 at 09:00 Acetaminophen (Tylenol Tab) 650 mg Q6H PRN PO .PAIN 1-3 OR TEMP; Start 10/08/18 at 02:00 Acetaminophen/ Hydrocodone Bitart ([place] (5/325)) 1 tab Q6H PRN PO .PAIN 4-6; Start 10/08/18 at 02:00 Enoxaparin Sodium (Lovenox) 40 mg DAILY SC Last administered on 10/10/18at 08:38; Admin Dose 40 MG; Start 10/08/18 at 09:00 Albuterol/ Ipratropium (Duoneb) 3 ml Q2H RESP THERAPY PRN HHN SHORTNESS OF BREATH; Start 10/08/18 at 02:00 Atorvastatin Calcium (Lipitor) 40 mg HS PO ; Start 10/08/18 at 21:00 Methylprednisolone Sodium Succinate 250 mg/Dextrose 50 ml @ 100 mls/hr ONCE ONCE IV ; Start 10/10/18 at 14:00; Stop 10/10/18 at 14:29 TINO PAGAN October 10, 2018 13:41
[2018-10-10] MEDS ORDERED: METHYLPRED. NA SUCC 250 MG in DEXTROSE 5% 50 ML IV ONE (14:00)
--- NOTE | 2018-10-10 14:39 | CONS ---
Assessment/Plan Assessment/Plan Hospital Course 28 yo M without significant PMH who presents for evaluation of LUE weakness x 1 day... for which neurology is consulted. Most clinically consistent with an acute peripheral nervous system process. A focal SUPERVISOR WIRE ROPE FABRICATION process is less likely, though not yet excluded. CT/CTA H is unremarkable MRI L shoulder is unrevealing. MRI brain/C spine is unremarkable. ESR, CRP wnl P: Cont workup and other medical management per primary PT/OT as necessary Recommend EMG/NCS as outpatient Will follow clinically Consultation Date/Type/Reason Admit Date/Time October 08, 2018 at 01:14 Type of Consult Neurology Reason for Consultation LUE weakness Requesting Provider: TINO PAGAN Date/Time of Note DATE: 10/10/18 TIME: 14:39 24 HR Interval Summary Free Text/Dictation Continues acute care. S/p MRI L shoulder. Pt states that he is still unable to move his L arm. Exam Vital Signs Vitals Vital Signs Date Temp Pulse Resp B/P (MAP) Pulse Ox O2 O2 Flow FiO2 Time Delivery Rate 10/10/18 98.3 63 20 119/63 95 11:42 (81) 10/10/18 Room Air 04:48 10/08/18 4.0 01:49 Intake and Output 10/09/18 10/09/18 10/10/18 1515:00 23:00 07:00 IntakeIntake Total 850 ml 400 ml BalanceBalance 850 ml 400 ml Exam PE: Gen Appearance: No Apparent Distress HEENT: Normocephalic Cardiovascular: Regular rate Lungs: Clear bilaterally Abdomen: Soft Extremities: Dry NE: The patient was alert and oriented.. Language was normal. Fund of knowledge was normal. Pupils were equal and reactive to light. There was no afferent pupillary defect. Visual quiñones were normal. Funduscopic examination was limited. Ptosis was absent. There was no nystagmus. Facial sensation was normal. Face was symmetric with normal strength. Hearing was intact. Palate movements were normal. Neck strength was normal. There was normal tongue bulk and speed of movement. Tone was normal. Muscle bulk was normal. I did not see fasciculations. R arm and legs were strong. L arm was plegic. Vibration sensation was diminished in the L pinky and middle finger and thumb. Pinprick sensation was diminished in the L arm from the fingertips of the L hand up to just above the nipple line. Rapid alternating movements were normal. There was no dysmetria. There was no intention tremor. Gait was deferred due to bedrest. R arm and leg reflexes were 2+. L arm reflexes were absent. Robles's sign was absent. Plantar responses were flexor. CONNIE VACA NP October 10, 2018 14:39
[2018-10-10] MEDS: ATORVASTATIN 40 MG TAB PO SCH (20:40)
[2018-10-11 02:00] VITALS: BP 115/72; PULSE 60; RESP 18
[2018-10-11 08:00] VITALS: BP 95/59; PULSE 60; RESP 19
[2018-10-11] MEDS: ASPIRIN 81 MG TAB PO SCH (09:03)
[2018-10-11] MEDS: ENOXAPARIN 40 MG/0.4 ML SYG SC SCH (09:05)
[2018-10-11] MEDS ORDERED: PRED10TA PO (12:52)
--- NOTE | 2018-10-11 12:55 | PDOCDIS ---
Discharge Instructions CONDITION [id number] Patient Condition: [id number] Stable HOME CARE INSTRUCTIONS: [id number] Diet Instructions: [id number] Regular ACTIVITY: [id number] Activity Restrictions: [id number] No Restrictions FOLLOW UP/APPOINTMENTS Follow-up Plan You need to follow-up with someone who specializes in peripheral nerve injury and abnormalities. My recommendation is that you go to [facility] using the information below. [facility] * Directions * Address: [address] [place] [address] * You should also follow-up with a primary care doctor as soon as you can. I know Dr. Rome is receiving patients, you can call his office to see if you can follow-up with him. Name, Degree: Diego Rome MD Specialty: Internal Medicine Comments: Office Address: [address] [place] [address] [place] [id number] Office Office You may also call your insurance company to assign one to you. Review your medication list with your nurse before leaving and if you need new prescriptions please let your nurse know. I may have made changes to your home medications or given you new prescriptions, please let your primary doctor know as well. Stay compliant with your medications and report any side effects to your PCP or pharmacist. Return to the ER if you have any concerns and cannot reach your doctors or call your insurance company, they usually have a nurse that can help you. . TINO PAGAN October 11, 2018 12:55
[2018-10-11] MEDS ORDERED: METHYLPREDNISOLONE 125 MG INJ IV ONE (13:00)
[2018-10-11] MEDS ORDERED: METHYLPREDNISOLONE 40 MG INJ IV ONE (13:30)
[2018-10-11 14:00] VITALS: BP 112/70; PULSE 62; RESP 18
--- NOTE | 2018-10-11 15:54 | CONS ---
Assessment/Plan Assessment/Plan Hospital Course 28 yo M without significant PMH who presents for evaluation of LUE weakness x 1 day... for which neurology is consulted. Most clinically consistent with an acute peripheral nervous system process. A focal PECAN GATHERER process is less likely, though not yet excluded. CT/CTA H is unremarkable MRI L shoulder is unrevealing. MRI brain/C spine is unremarkable. ESR, CRP wnl P: Cont workup and other medical management per primary PT/OT as necessary Recommend EMG/NCS as outpatient Will follow Consultation Date/Type/Reason Admit Date/Time October 08, 2018 at 01:14 Type of Consult Neurology Reason for Consultation LUE weakness Requesting Provider: TINO PAGAN Date/Time of Note DATE: 10/11/18 TIME: 15:54 24 HR Interval Summary Free Text/Dictation Continues acute care. Pt still endorses inability to move L arm. Exam Vital Signs Vitals Vital Signs Date Temp Pulse Resp B/P (MAP) Pulse Ox O2 O2 Flow FiO2 Time Delivery Rate 10/11/18 97.9 62 18 112/70 98 Room Air 14:00 (84) 10/08/18 4.0 01:49 Intake and Output 10/10/18 10/10/18 10/11/18 1515:00 23:00 07:00 IntakeIntake Total 750 ml BalanceBalance 750 ml Exam PE: Gen Appearance: No Apparent Distress HEENT: Normocephalic Cardiovascular: Regular rate Lungs: Clear bilaterally Abdomen: Soft Extremities: Dry NE: The patient was alert and oriented.. Language was normal. Fund of knowledge was normal. Pupils were equal and reactive to light. There was no afferent pupillary defect. Visual quiñones were normal. Funduscopic examination was limited. Ptosis was absent. There was no nystagmus. Facial sensation was normal. Face was symmetric with normal strength. Hearing was intact. Palate movements were normal. Neck strength was normal. There was normal tongue bulk and speed of movement. Tone was normal. Muscle bulk was normal. I did not see fasciculations. R arm and legs were strong. L arm was plegic. Vibration sensation was diminished in the L pinky and middle finger and thumb. Pinprick sensation was diminished in the L arm from the fingertips of the L hand up to just above the nipple line. Rapid alternating movements were normal. There was no dysmetria. There was no intention tremor. Gait was deferred due to bedrest. R arm and leg reflexes were 2+. L arm reflexes were absent. Robles's sign was absent. Plantar responses were flexor. CONNIE VACA NP October 11, 2018 15:54
--- NOTE | 2018-10-14 20:02 | DS ---
Date/Time of Note Date/Time of Note DATE: 10/14/18 TIME: 20:00 Discharge Summary Admission/Discharge Info Admit Date/Time October 08, 2018 at 01:14 Discharge Date/Time October 11, 2018 at 16:15 Discharge Diagnosis 28 yo M without significant PMH who presents for evaluation of LUE weakness x 1 day... for which neurology is consulted. Most clinically consistent with an acute peripheral nervous system process Procedures CT/CTA H is unremarkable MRI L shoulder is unrevealing. MRI brain/C spine is unremarkable. ESR, CRP wnl Hospital Course 28-year-old male who was admitted earlier today by my colleague who had presented with left upper extremity paresis. Code stroke was activated in the emergency room, he was seen by telemetry neurology who made a tentative diagnosis of brachial plexus injury and low likelihood of ischemic brain injury. CT scan of the brain and head CT was negative. Neurology does recommend MRI of the brain which is pending. Urine toxicology screen positive only for cannabinoids. TSH was mildly elevated. Patient left upper extremity remains completely paretic. Patient is understandably very anxious about his symptoms. 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 It is unlikely that this has anything to do with his symptoms, records reviewed, no concerning findings noted MRI shoulder reviewed -no new concerning findings -appreciate nsg review abd recommendations PT/OT as necessary Recommend EMG/NCS as outpatient Home Meds Active Scripts Prednisone* (Prednisone*) 10 Mg Tab, 10 MG PO DAILY, #21 TAB take 6 pills tomorrow take 5 pills on the next day take 4 pills on the next day take 3 pills on the next day take 2 pills on the next day take 1 pill on the next day then stop Prov:TINO PAGAN. 10/11/18 Follow-up Plan You need to follow-up with someone who specializes in peripheral nerve injury and abnormalities. My recommendation is that you go to [facility] using the information below. [facility] - [facility] * Directions * Address: [address], [place] [address] * You should also follow-up with a primary care doctor as soon as you can. I know Dr. Rome is receiving patients, you can call his office to see if you can follow-up with him. Name, Degree: Diego Rome MD Specialty: Internal Medicine Comments: Office Address: [address] [place] [address] [place] [address] Office Office You may also call your insurance company to assign one to you. Review your medication list with your nurse before leaving and if you need new prescriptions please let your nurse know. I may have made changes to your home medications or given you new prescriptions, please let your primary doctor know as well. Stay compliant with your medications and report any side effects to your PCP or pharmacist. Return to the ER if you have any concerns and cannot reach your doctors or call your insurance company, they usually have a nurse that can help you. . Primary Care Provider Care Physician No Primary Time spent on discharge: > 30 minutes TINO PAGAN October 14, 2018 20:02
== END 2018-10-11 16:15 | disposition left against medical advice (07) | DRG 74 ==
LOC: E/R 22:48 → 6WM 10-08 01:14 → 2NE 10-10 23:29 → PP2 10-10 23:39
PROVIDERS: ADMIT Internal Medicine; ATTEND Family Medicine
DX: S14.3XXA Injury of brachial plexus, initial encounter (principal); G81.04 Flaccid hemiplegia affecting left nondominant side; G54.5 Neuralgic amyotrophy; X58.XXXA Exposure to other specified factors, initial encounter; Y93.84 Activity, sleeping; Y92.019 Unspecified place in single-family (private) house as the place of occurrence of the external cause; Y99.8 Other external cause status; R29.704 NIHSS score 4; M51.26 Other intervertebral disc displacement, lumbar region; Z79.82 Long term (current) use of aspirin
CPT/HCPCS: 36415; 70450; 70496; 70498; 70553; 71045; 72156; 73221; 80048; 80053; 80061; 80307; 81001; 82550; 82553; 83036; 83735; 84100; 84443; 84484; 85025; 85610; 85651; 85730; 86140; 92610; 93005; 93306; 97161; 97166; J1650; J2920; J2930; J7030; Q9967

== ENCOUNTER 2018-11-07 03:35 | Inpatient (IN) | payer MEDICAID, OTHER ==
[~2018-11-07] VITALS: Ht 172.7 cm; Wt 75.3 kg
[~2018-11-07 03:35] MED LIST: PRED10TA PO
[2018-11-07] MEDS ORDERED: VANCOMYCIN 1 GM (PMX) 250 ML IVPB STA (04:03)
[2018-11-07] MEDS ORDERED: ONDANSETRON 4 MG INJ IV STA ×2 (04:03→06:24)
[2018-11-07] MEDS ORDERED: ACETAMINOPHEN 325 MG TAB PO STA (04:03)
[2018-11-07] MEDS ORDERED: morphine 4 MG/ML VIAL IV STA (04:03)
[2018-11-07] MEDS ORDERED: PIPER-TAZO 3.375 GM IV (PMX) 100 ML IVPB STA (04:03)
[2018-11-07] MEDS ORDERED: SODIUM CHLORIDE 0.9% 1L BAG IV* STA ×2 (04:03)
[2018-11-07] MEDS ORDERED: ONDANSETRON 4 MG INJ IV PRN ×2 (05:00→06:00)
[2018-11-07] MEDS ORDERED: ACETAMINOPHEN 325 MG TAB PO PRN ×2 (05:00→06:00)
[2018-11-07] MEDS ORDERED: hydrALAzine 20 MG INJ IV PRN (06:00)
[2018-11-07] MEDS ORDERED: MAGNESIUM HYDROXIDE 30ML CUP PO PRN (06:00)
[2018-11-07] MEDS ORDERED: NACL 0.9% 3 ML SYG IV SCH (06:00)
[2018-11-07] MEDS ORDERED: LORAZEPAM 2 MG INJ IV PRN (06:00)
[2018-11-07] MEDS ORDERED: HYDROCODONE/APAP (5/325) TAB PO PRN (06:00)
[2018-11-07] MEDS ORDERED: ALBUTEROL/IPRATROPIUM (NEB) 3 ML AMP HHN PRN (06:00)
[2018-11-07] MEDS ORDERED: NITROGLYCERIN (SL) 0.4 MG TAB SL PRN (06:00)
[2018-11-07] MEDS ORDERED: VANCOMYCIN IV PER PHARMACY XX SCH (06:00)
[2018-11-07] MEDS ORDERED: DOCUSATE SODIUM 100 MG CAP PO PRN (06:00)
--- NOTE | 2018-11-07 06:16 | HP ---
Date/Time of Note Date/Time of Note DATE: 11/07/18 TIME: 06:15 Assessment/Plan VTE Prophylaxis SCD applied (from Nsg): Yes Pharmacological prophylaxis: other Lines/Catheters IV Catheter Type (from Nrsg): Saline Lock Assessment/Plan Hospital Course 28-year-old male no significant past medical history who presents with buttock pain and findings of a buttock abscess, along with JOAO and elevated troponin. 1. Buttock abscess: There is drainage again white blood cell count elevated 21,000. -We will place the patient on broad-spectrum antibiotics, obtain surgery and infectious disease consults. -Follow-up final culture results, Tylenol PRN pain fevers, IV fluids, pain control medications 2. Elevated troponin: Patient denies any chest pain, but on admission his troponin first 1 is 0.131. Patient himself denies any prior history of any stroke or heart attacks, no apparent family history of any coronary artery disease. Of note his creatinine is 1.58 -We will trend his troponins, high-dose aspirin, morphine as needed, Atrovent and as needed. -We will obtain cardiology consult and check echocardiogram 3. Renal insufficiency: Again his creatinine is 1.58. Baseline appears to be 0.72 -We will continue IV fluids, monitor BUN/creatinine levels. -If there are any worsening symptoms, we will obtain renal consult at that time Result Diagram: 11/07/18 0410 11/07/18 0410 Results 24hrs Laboratory Tests Test 11/07/18 04:10 11/07/18 04:39 White Blood Count 21.5 #H Red Blood Count 4.22 L Hemoglobin 12.5 L Hematocrit 37.5 L Mean Corpuscular Volume 88.9 Mean Corpuscular Hemoglobin 29.6 Mean Corpuscular Hemoglobin Concent 33.3 Red Cell Distribution Width 12.3 Platelet Count 339 # Mean Platelet Volume 8.5 Immature Granulocytes % 2.600 H Neutrophils % 76.2 Lymphocytes % 6.0 L Monocytes % 14.4 H Eosinophils % 0.1 Basophils % 0.7 Nucleated Red Blood Cells % 0.0 Immature Granulocytes # 0.550 H Neutrophils # 16.4 H Lymphocytes # 1.3 Monocytes # 3.1 H Eosinophils # 0.0 Basophils # 0.2 H Nucleated Red Blood Cells # 0.0 Prothrombin Time 14.0 Prothrombin Time Ratio 1.1 INR International Normalized Ratio 1.07 Activated Partial Thromboplast Time 27.2 Sodium Level 138 Potassium Level 4.1 Chloride Level 93 L Carbon Dioxide Level 27 Anion Gap 18 H Blood Urea Nitrogen 15 Creatinine 1.58 H Est Glomerular Filtrat Rate mL/min 53 L Glucose Level 93 Calcium Level 9.8 Total Bilirubin 0.7 Direct Bilirubin 0.00 Indirect Bilirubin 0.7 Aspartate Amino Transf (AST/SGOT) 22 Alanine Aminotransferase (ALT/SGPT) 24 Alkaline Phosphatase 75 Troponin I 0.131 *H Total Protein 7.3 Albumin 4.3 Globulin 3.00 Albumin/Globulin Ratio 1.43 POC Venous Lactate 3.8 *H HPI/ROS Admit Date/Time Admit Date/Time Hx of Present Illness 28-year-old male no significant past medical history who presents with buttock pain. Patient states the symptoms have been going on for the last 5 to 6 days. He said some positive chills and some sweats. He is also had some nonbilious nonbloody vomiting and nausea symptoms. In the last 24 hours he is also noticed some drainage from the buttock area dark serous fluid mixed with greenish pus patient denies any trauma to the area no prior history of this. When he came in today he was found with elevated white blood cell count 21.5 the ER has made a call out to the surgeon to come evaluate the patient to see about a possible incision and drainage that needs to be done given the size of an abscess that is been found on physical exam. Patient denies any upper or lower GI bleeding, diarrhea constipation, chest pain or shortness of breath. PMH/Family/Social Past Medical History Medications Current Medications Ondansetron HCl (Zofran Inj) 4 mg BRIDGE ORDER PRN IV NAUSEA/VOMITING; Start 11/07/18 at 05:00; Stop 11/08/18 at 04:59 Acetaminophen (Tylenol Tab) 650 mg ER BRIDGE PRN PO .MILD PAIN 1-3 OR TEMP; Start 11/07/18 at 05:00; Stop 11/08/18 at 04:59 IV Flush (NS 3 ml) 3 ml PER PROTOCOL IV ; Start 11/07/18 at 06:00 Ondansetron HCl (Zofran Inj) 4 mg Q6H PRN IV NAUSEA/VOMITING; Start 11/07/18 at 06:00 Acetaminophen (Tylenol Tab) 650 mg Q6H PRN PO .PAIN 1-3 OR TEMP; Start 11/07/18 at 06:00 Acetaminophen/ Hydrocodone Bitart ([place] (5/325)) 1 tab Q6H PRN PO .MOD PAIN 4- 6; Start 11/07/18 at 06:00 Morphine Sulfate (morphine) 2 mg Q4H PRN IV .SEVERE PAIN 7-10; Start 11/07/18 at 06:00 Docusate Sodium (Colace) 100 mg Q12H PRN PO .CONSTIPATION; Start 11/07/18 at 06:00 Magnesium Hydroxide (Milk Of Mag) 30 ml DAILY PRN PO .CONSTIPATION; Start 11/07/18 at 06:00 Lorazepam (Ativan) 0.5 mg Q6H PRN IV ANXIETY; Start 11/07/18 at 06:00; Status UNV Sodium Chloride 1,000 ml @ 125 mls/hr Q8H IV ; Start 11/07/18 at 05:50; Status UNV Albuterol/ Ipratropium (Duoneb) 3 ml Q4H RESP THERAPY PRN HHN SHORTNESS OF BREATH; Start 11/07/18 at 06:00; Status UNV Piperacillin Sod/ Tazobactam Sod 100 ml @ 200 mls/hr Q6 IVPB ; Start 11/07/18 at 06:00; Status UNV Vancomycin HCl (Vanco Iv Per Pharmacy) VANCOMYCIN PER PHARMACY NOTE XX ; Start 11/07/18 at 06:00; Status UNV Hydralazine HCl (Apresoline) 10 mg Q6H PRN IV ELEVATED BLOOD PRESSURE; Start 11/07/18 at 06:00; Status UNV Nitroglycerin (Nitroglycerin (Sl Tab) 0.4 Mg) 1 tab Q5M PRN SL ANGINA; Start 11/07/18 at 06:00; Status UNV Aspirin (Ecotrin) 325 mg DAILY PO ; Start 11/07/18 at 09:00; Status UNV Coded Allergies: No Known Drug Allergies (Verified Allergy, Unknown, 10/08/18) Family History Significant Family History: no pertinent family hx Social History Alcohol Use: none Smoking Status: Never smoker Drug Use: none Exam/Review of Systems Vital Signs Vitals Vital Signs Date Temp Pulse Resp B/P (MAP) Pulse Ox O2 O2 Flow FiO2 Time Delivery Rate 11/07/18 98.1 78 98/71 (80) 100 Room Air 05:22 11/07/18 22 03:37 Exam Exam Gen: Lying in bed, in mild distress but answers questions Head: Atraumatic. Eyes: Normal Conjunctiva. ENT: Normal External Ears, Nose and Mouth. Neck: Full range of motion. No meningismus. Resp: Clear to auscultation bilaterally. Cardio: Regular rate and rhythm. Abd: Soft, nondistended, normal bowel sounds, non tender. Ext: No lower extremity bilaterally Neuro: No focal deficits SAMANTHA MARTIN Nov 07, 2018 06:16
[2018-11-07] MEDS ORDERED: SOD CHLORIDE 0.9% 1,000 ML IV STA (06:24)
[2018-11-07] MEDS ORDERED: FENTAnyl 50 MCG/ML VIAL IV ONE (06:30)
[2018-11-07] MEDS: SOD CHLORIDE 0.9% 1,000 ML IV SCH ×3 (08:14→21:50)
[2018-11-07] MEDS: morphine 2 MG INJ IV PRN ×4 (08:22→22:17)
[2018-11-07] MEDS ORDERED: ASPIRIN (EC) 325 MG TAB PO SCH (09:00)
[2018-11-07 10:43] VITALS: BP 102/54; PULSE 63; RESP 20
[2018-11-07 10:57] VITALS: Ht 172.7 cm; Wt 75.3 kg
[2018-11-07] MEDS: PIPER-TAZO 3.375 GM IV (PMX) 100 ML IVPB SCH ×2 (11:52→20:59)
[2018-11-07 12:21] VITALS: PULSE 74
--- NOTE | 2018-11-07 14:28 | CONS ---
Assessment/Plan Assessment/Plan Hospital Course (Demo Recall) Elevated troponin: Unclear etiology. EF normal one month prior. Mild trop 0.13 and trended down. The way the pt describes his buttock abscess and the pain associated with it, he may have had local rhabdomyolysis from the pain and since the abscess drained and the pressure released, maybe the CK had time to normalize and the trop took longer with the renal failure. Highly doubt CAD. Will check a limited echo to make sure nothing has changed in the interim but otherwise no workup. Buttock abscess: was on steroid taper Acute renal failure: from sepsis and could have had rhabdo at some point as well though now normal CK Brachial plexus injury: arm still nonfunctional but can move his fingers now -limited echo -antibiotics -IVF Consultation Date/Type/Reason Admit Date/Time Date of Consultation: Nov 07, 2018 Type of Consult Cardiology Reason for Consultation Elevated troponin Requesting Provider: SAMANTHA MARTIN Date/Time of Note DATE: 11/07/18 TIME: 13:46 Hx of Present Illness 28 yo M with no prior medical history who was here one month ago with left arm paralysis diagnosed with brachial plexus injury after falling asleep for a prolonged time. He went home on steroids. About 2 weeks ago he started to have buttock pain and eventually swelling and extreme pain. He came in for evaluation but the abscess had started to drain and is now significantly better. He was noted to have renal failure, leukocytosis, lactic acidosis. He was started on IV antibiotics and IVF and feels much better. No prior cardiac disease or chest pain with or without exertion. per HPI Past Medical History per HPI Home Meds Discontinued Scripts Prednisone* (Prednisone*) 10 Mg Tab, 10 MG PO DAILY, #21 TAB take 6 pills tomorrow take 5 pills on the next day take 4 pills on the next day take 3 pills on the next day take 2 pills on the next day take 1 pill on the next day then stop Prov:LATASHATINO Chowdary 10/11/18 Medications Current Medications Ondansetron HCl (Zofran Inj) 4 mg BRIDGE ORDER PRN IV NAUSEA/VOMITING Last administered on 11/07/18at 08:22; Admin Dose 4 MG; Start 11/07/18 at 05:00; Stop 11/08/18 at 04:59 Acetaminophen (Tylenol Tab) 650 mg ER BRIDGE PRN PO .MILD PAIN 1-3 OR TEMP; Start 11/07/18 at 05:00; Stop 11/08/18 at 04:59 IV Flush (NS 3 ml) 3 ml PER PROTOCOL IV ; Start 11/07/18 at 06:00 Ondansetron HCl (Zofran Inj) 4 mg Q6H PRN IV NAUSEA/VOMITING; Start 11/07/18 at 06:00 Acetaminophen (Tylenol Tab) 650 mg Q6H PRN PO .PAIN 1-3 OR TEMP; Start 11/07/18 at 06:00 Acetaminophen/ Hydrocodone Bitart ([place] (5/325)) 1 tab Q6H PRN PO .MOD PAIN 4- 6; Start 11/07/18 at 06:00 Morphine Sulfate (morphine) 2 mg Q4H PRN IV .SEVERE PAIN 7-10 Last administered on 11/07/18at 12:50; Admin Dose 2 MG; Start 11/07/18 at 06:00 Docusate Sodium (Colace) 100 mg Q12H PRN PO .CONSTIPATION; Start 11/07/18 at 06:00 Magnesium Hydroxide (Milk Of Mag) 30 ml DAILY PRN PO .CONSTIPATION; Start 11/07/18 at 06:00 Lorazepam (Ativan) 0.5 mg Q6H PRN IV ANXIETY; Start 11/07/18 at 06:00 Sodium Chloride 1,000 ml @ 125 mls/hr Q8H IV Last administered on 11/07/18at 08:14; Admin Dose 125 MLS/HR; Start 11/07/18 at 05:50 Albuterol/ Ipratropium (Duoneb) 3 ml Q4H RESP THERAPY PRN HHN SHORTNESS OF BREATH; Start 11/07/18 at 06:00 Piperacillin Sod/ Tazobactam Sod 100 ml @ 200 mls/hr Q6 IVPB Last administered on 11/07/18at 11:52; Admin Dose 200 MLS/HR; Start 11/07/18 at 12:00 Vancomycin HCl (Vanco Iv Per Pharmacy) VANCOMYCIN PER PHARMACY NOTE XX ; Start 11/07/18 at 06:00 Hydralazine HCl (Apresoline) 10 mg Q6H PRN IV ELEVATED BLOOD PRESSURE; Start 11/07/18 at 06:00 Nitroglycerin (Nitroglycerin (Sl Tab) 0.4 Mg) 1 tab Q5M PRN SL ANGINA; Start 11/07/18 at 06:00 Aspirin (Ecotrin) 325 mg DAILY PO Last administered on 11/07/18at 08:14; Admin Dose 325 MG; Start 11/07/18 at 09:00 Vancomycin HCl 250 ml @ 125 mls/hr Q12H IVPB ; Start 11/07/18 at 15:00 Allergies: Coded Allergies: No Known Drug Allergies (Verified Allergy, Unknown, 11/07/18) Social History Alcohol Use: none Smoking Status: Current some day smoker Drug Use: none Exam/Review of Systems Vital Signs Vitals Vital Signs Date Temp Pulse Resp B/P (MAP) Pulse Ox O2 O2 Flow FiO2 Time Delivery Rate 11/07/18 74 12:21 11/07/18 97.8 20 102/54 98 Room Air 10:43 (70) Exam Constitutional: alert, oriented Psych: no complaints, nl mood/affect Head: normocephalic, atraumatic Neck: supple; No jvd Respiratory: clear to auscultation; No crackles/rales Cardiovascular: regular rate and rhythm; No edema, No systolic murmur Gastrointestinal: soft, non-tender; No distended Neurological: nl mental status, nl speech Labs Result Diagram: 11/07/18 0410 11/07/18 0410 Results 24hrs Laboratory Tests Test 11/07/18 04:10 11/07/18 04:39 11/07/18 07:22 11/07/18 07:23 White Blood Count 21.5 #H Red Blood Count 4.22 L Hemoglobin 12.5 L Hematocrit 37.5 L Mean Corpuscular Volume 88.9 Mean Corpuscular 29.6 Hemoglobin Mean Corpuscular 33.3 Hemoglobin Concent Red Cell Distribution 12.3 Width Platelet Count 339 # Mean Platelet Volume 8.5 Immature Granulocytes % 2.600 H Neutrophils % 76.2 Lymphocytes % 6.0 L Monocytes % 14.4 H Eosinophils % 0.1 Basophils % 0.7 Nucleated Red Blood 0.0 Cells % Immature Granulocytes # 0.550 H Neutrophils # 16.4 H Lymphocytes # 1.3 Monocytes # 3.1 H Eosinophils # 0.0 Basophils # 0.2 H Nucleated Red Blood 0.0 Cells # Prothrombin Time 14.0 Prothrombin Time Ratio 1.1 INR International 1.07 Normalized Ratio Activated 27.2 Partial Thromboplast Time Sodium Level 138 Potassium Level 4.1 Chloride Level 93 L Carbon Dioxide Level 27 Anion Gap 18 H Blood Urea Nitrogen 15 Creatinine 1.58 H Est Glomerular Filtrat 53 L Rate mL/min Glucose Level 93 Calcium Level 9.8 Total Bilirubin 0.7 Direct Bilirubin 0.00 Indirect Bilirubin 0.7 Aspartate Amino 22 Transf (AST/SGOT) Alanine 24 Aminotransferase (ALT/SG PT) Alkaline Phosphatase 75 Troponin I 0.131 *H 0.118 Total Protein 7.3 Albumin 4.3 Globulin 3.00 Albumin/Globulin Ratio 1.43 POC Venous Lactate 3.8 *H Creatine Kinase 129 Creatine Kinase Index 1.8 Creatinine Kinase MB 2.33 (Mass) Lactic Acid Level 2.1 *H Free Thyroxine 1.35 Test 11/07/18 09:06 11/07/18 10:25 11/07/18 10:56 Lactic Acid Level 1.6 Urine Color YELLOW Urine Clarity CLOUDY A Urine pH 5.0 Urine Specific [place] 1.015 Urine Ketones 1+ H Urine Nitrite NEGATIVE Urine Bilirubin NEGATIVE Urine Urobilinogen 1+ H Urine Leukocyte Esterase NEGATIVE Urine Microscopic RBC 1 Urine Microscopic WBC 7 H Urine Hyaline Casts FEW A Urine Mucus FEW A Urine Hemoglobin NEGATIVE Urine Glucose NEGATIVE Urine Total Protein NEGATIVE Creatine Kinase 139 Creatine Kinase Index 1.8 Creatinine Kinase MB 2.56 H (Mass) Troponin I 0.056 Medications Medications Current Medications Ondansetron HCl (Zofran Inj) 4 mg BRIDGE ORDER PRN IV NAUSEA/VOMITING Last administered on 11/07/18at 08:22; Admin Dose 4 MG; Start 11/07/18 at 05:00; Stop 11/08/18 at 04:59 Acetaminophen (Tylenol Tab) 650 mg ER BRIDGE PRN PO .MILD PAIN 1-3 OR TEMP; Start 11/07/18 at 05:00; Stop 11/08/18 at 04:59 IV Flush (NS 3 ml) 3 ml PER PROTOCOL IV ; Start 11/07/18 at 06:00 Ondansetron HCl (Zofran Inj) 4 mg Q6H PRN IV NAUSEA/VOMITING; Start 11/07/18 at 06:00 Acetaminophen (Tylenol Tab) 650 mg Q6H PRN PO .PAIN 1-3 OR TEMP; Start 11/07/18 at 06:00 Acetaminophen/ Hydrocodone Bitart ([place] (5/325)) 1 tab Q6H PRN PO .MOD PAIN 4- 6; Start 11/07/18 at 06:00 Morphine Sulfate (morphine) 2 mg Q4H PRN IV .SEVERE PAIN 7-10 Last administered on 11/07/18at 12:50; Admin Dose 2 MG; Start 11/07/18 at 06:00 Docusate Sodium (Colace) 100 mg Q12H PRN PO .CONSTIPATION; Start 11/07/18 at 06:00 Magnesium Hydroxide (Milk Of Mag) 30 ml DAILY PRN PO .CONSTIPATION; Start 11/07/18 at 06:00 Lorazepam (Ativan) 0.5 mg Q6H PRN IV ANXIETY; Start 11/07/18 at 06:00 Sodium Chloride 1,000 ml @ 125 mls/hr Q8H IV Last administered on 11/07/18at 08:14; Admin Dose 125 MLS/HR; Start 11/07/18 at 05:50 Albuterol/ Ipratropium (Duoneb) 3 ml Q4H RESP THERAPY PRN HHN SHORTNESS OF BREATH; Start 11/07/18 at 06:00 Piperacillin Sod/ Tazobactam Sod 100 ml @ 200 mls/hr Q6 IVPB Last administered on 11/07/18at 11:52; Admin Dose 200 MLS/HR; Start 11/07/18 at 12:00 Vancomycin HCl (Vanco Iv Per Pharmacy) VANCOMYCIN PER PHARMACY NOTE XX ; Start 11/07/18 at 06:00 Hydralazine HCl (Apresoline) 10 mg Q6H PRN IV ELEVATED BLOOD PRESSURE; Start 11/07/18 at 06:00 Nitroglycerin (Nitroglycerin (Sl Tab) 0.4 Mg) 1 tab Q5M PRN SL ANGINA; Start 11/07/18 at 06:00 Aspirin (Ecotrin) 325 mg DAILY PO Last administered on 11/07/18at 08:14; Admin Dose 325 MG; Start 11/07/18 at 09:00 Vancomycin HCl 250 ml @ 125 mls/hr Q12H IVPB ; Start 11/07/18 at 15:00 DALILA CHANCE Nov 07, 2018 13:58
[2018-11-07] MEDS ORDERED: VANCOMYCIN 1 GM 250 ML IVPB SCH (15:00)
[2018-11-07 15:03] VITALS: BP 124/56; PULSE 85; RESP 20
--- NOTE | 2018-11-07 15:36 | CONS ---
DATE OF ADMISSION: 11/07/2018 DATE OF CONSULTATION: 11/07/2018 TYPE OF CONSULTATION: Infectious disease. REASON FOR CONSULTATION: Antibiotic management. HISTORY OF PRESENT ILLNESS: Homer Moore is a 28-year-old male with no significant past medical history, who presents with buttock pain and findings of a buttock abscess. He also has acute renal failure and an elevated troponin. The patient stated his symptoms began for the last 5 or 6 days. H e had some chills and sweats. He also had some nausea and vomiting. In the last 24 hours, he noted drainage from the buttock area with dark serous fluid mixed with greenish pus. He denies any trauma to the area. No prior history of drug abuse. On admission, his white count was 21.5, H and H 12.5 a nd 37.5, platelet count 339,000. BUN and creatinine 15/1.58 with 76% neutrophils. A call was made t o a surgeon to come evaluate the patient for a possible incision and drainage, given the size of the abscess which is quite large. The patient denies any upper or lower GI bleed. PAST MEDICAL HISTORY: Operations as outlined. FAMILY HISTORY: Noncontributory. SOCIAL HISTORY: He does not smoke, drink or abuse drugs. ALLERGIES: None to penicillin, sulfa or foods. MEDICATIONS: Per chart. REVIEW OF SYSTEMS: As per HPI. PHYSICAL EXAMINATION: GENERAL: The patient is lying in bed in mild distress. He is awake, responsive, in mild distress. VITAL SIGNS: Stable. He is afebrile. SKIN: Without generalized rash. HEENT: Within normal limits. NECK: Supple. LYMPH NODES: None palpable. CHEST: Decreased breath sounds at the bases. HEART: Without murmur or gallop. ABDOMEN: Soft, nontender, without organosplenomegaly or masses. EXTREMITIES: Without cyanosis, clubbing, or edema. The patient has significant pain in the buttock area. Chest x-ray: No acute infiltrates. PLAN: Patient was begun on vancomycin and Zosyn. Blood cultures were done. Urine cultures were don e. Not sure if wound cultures were done which we will order. I will dictate my findings to the hosp italists. Dictated By: MAO FONTAINE MD, JD/FELICITA Conf#: [id number] DID#: [id number] CC: SAMANTHA MARTIN;*EndCC*
--- NOTE | 2018-11-07 16:20 | PN ---
Date/Time of Note Date/Time of Note DATE: 11/07/18 TIME: 16:17 Assessment/Plan VTE Prophylaxis SCD applied (from Nsg): Yes Pharmacological prophylaxis: NA/contraindicated Pharm contraindication: surgical contra Lines/Catheters IV Catheter Type (from Nrs): Saline Lock Assessment/Plan Hospital Course 28-year-old male no significant past medical history who presents with buttock pain and findings of a buttock abscess, along with JOAO and elevated troponin. 1. Sepsis secondary to buttock abscess: There is drainage again white blood cell count elevated 21,000. -Continue broad-spectrum antibiotics, ID and surgery consultations obtained -Follow-up final culture results, Tylenol PRN pain fevers, IV fluids, pain control medications 2. Elevated troponin: Patient denies any chest pain, but on admission his troponin first 1 is 0.131. Patient himself denies any prior history of any stroke or heart attacks, no apparent family history of any coronary artery disease. Of note his creatinine is 1.58 -Troponins trending down, elevation may have been secondary to rhabdomyolysis in setting of mild acute kidney injury -Cardiology consultation appreciated 3. Acute kidney injury likely secondary to sepsis -We will continue IV fluids, monitor BUN/creatinine levels. -If there are any worsening symptoms, we will obtain renal consult Prophylaxis: SCDs Result Diagram: 11/07/1840911/07/180 Results 24hrs Laboratory Tests Test 11/07/18 04:10 11/07/18 04:39 11/07/18 07:22 11/07/18 07:23 White Blood Count 21.5 #H Red Blood Count 4.22 L Hemoglobin 12.5 L Hematocrit 37.5 L Mean Corpuscular Volume 88.9 Mean Corpuscular 29.6 Hemoglobin Mean Corpuscular 33.3 Hemoglobin Concent Red Cell Distribution 12.3 Width Platelet Count 339 # Mean Platelet Volume 8.5 Immature Granulocytes % 2.600 H Neutrophils % 76.2 Lymphocytes % 6.0 L Monocytes % 14.4 H Eosinophils % 0.1 Basophils % 0.7 Nucleated Red Blood 0.0 Cells % Immature Granulocytes # 0.550 H Neutrophils # 16.4 H Lymphocytes # 1.3 Monocytes # 3.1 H Eosinophils # 0.0 Basophils # 0.2 H Nucleated Red Blood 0.0 Cells # Prothrombin Time 14.0 Prothrombin Time Ratio 1.1 INR International 1.07 Normalized Ratio Activated 27.2 Partial Thromboplast Time Sodium Level 138 Potassium Level 4.1 Chloride Level 93 L Carbon Dioxide Level 27 Anion Gap 18 H Blood Urea Nitrogen 15 Creatinine 1.58 H Est Glomerular Filtrat 53 L Rate mL/min Glucose Level 93 Calcium Level 9.8 Total Bilirubin 0.7 Direct Bilirubin 0.00 Indirect Bilirubin 0.7 Aspartate Amino 22 Transf (AST/SGOT) Alanine 24 Aminotransferase (ALT/SG PT) Alkaline Phosphatase 75 Troponin I 0.131 *H 0.118 Total Protein 7.3 Albumin 4.3 Globulin 3.00 Albumin/Globulin Ratio 1.43 POC Venous Lactate 3.8 *H Creatine Kinase 129 Creatine Kinase Index 1.8 Creatinine Kinase MB 2.33 (Mass) Lactic Acid Level 2.1 *H Free Thyroxine 1.35 Test 11/07/18 09:06 11/07/18 10:25 11/07/18 10:56 Lactic Acid Level 1.6 Urine Color YELLOW Urine Clarity CLOUDY A Urine pH 5.0 Urine Specific [place] 1.015 Urine Ketones 1+ H Urine Nitrite NEGATIVE Urine Bilirubin NEGATIVE Urine Urobilinogen 1+ H Urine Leukocyte Esterase NEGATIVE Urine Microscopic RBC 1 Urine Microscopic WBC 7 H Urine Hyaline Casts FEW A Urine Mucus FEW A Urine Hemoglobin NEGATIVE Urine Glucose NEGATIVE Urine Total Protein NEGATIVE Creatine Kinase 139 Creatine Kinase Index 1.8 Creatinine Kinase MB 2.56 H (Mass) Troponin I 0.056 Subjective 24 Hr Interval Summary Musculoskeletal: bone/joint pain Exam/Review of Systems Exam Vitals Vital Signs Date Temp Pulse Resp B/P (MAP) Pulse Ox O2 O2 Flow FiO2 Time Delivery Rate 11/07/18 97.6 85 20 124/56 100 Room Air 15:03 (78) Constitutional: alert, oriented Respiratory: clear to auscultation Cardiovascular: regular rate and rhythm Gastrointestinal: soft; No distended Musculoskeletal: nl extremities to inspection Results Results 24hrs Laboratory Tests Test 11/07/18 04:10 11/07/18 04:39 11/07/18 07:22 11/07/18 07:23 White Blood Count 21.5 #H Red Blood Count 4.22 L Hemoglobin 12.5 L Hematocrit 37.5 L Mean Corpuscular Volume 88.9 Mean Corpuscular 29.6 Hemoglobin Mean Corpuscular 33.3 Hemoglobin Concent Red Cell Distribution 12.3 Width Platelet Count 339 # Mean Platelet Volume 8.5 Immature Granulocytes % 2.600 H Neutrophils % 76.2 Lymphocytes % 6.0 L Monocytes % 14.4 H Eosinophils % 0.1 Basophils % 0.7 Nucleated Red Blood 0.0 Cells % Immature Granulocytes # 0.550 H Neutrophils # 16.4 H Lymphocytes # 1.3 Monocytes # 3.1 H Eosinophils # 0.0 Basophils # 0.2 H Nucleated Red Blood 0.0 Cells # Prothrombin Time 14.0 Prothrombin Time Ratio 1.1 INR International 1.07 Normalized Ratio Activated 27.2 Partial Thromboplast Time Sodium Level 138 Potassium Level 4.1 Chloride Level 93 L Carbon Dioxide Level 27 Anion Gap 18 H Blood Urea Nitrogen 15 Creatinine 1.58 H Est Glomerular Filtrat 53 L Rate mL/min Glucose Level 93 Calcium Level 9.8 Total Bilirubin 0.7 Direct Bilirubin 0.00 Indirect Bilirubin 0.7 Aspartate Amino 22 Transf (AST/SGOT) Alanine 24 Aminotransferase (ALT/SG PT) Alkaline Phosphatase 75 Troponin I 0.131 *H 0.118 Total Protein 7.3 Albumin 4.3 Globulin 3.00 Albumin/Globulin Ratio 1.43 POC Venous Lactate 3.8 *H Creatine Kinase 129 Creatine Kinase Index 1.8 Creatinine Kinase MB 2.33 (Mass) Lactic Acid Level 2.1 *H Free Thyroxine 1.35 Test 11/07/18 09:06 11/07/18 10:25 11/07/18 10:56 Lactic Acid Level 1.6 Urine Color YELLOW Urine Clarity CLOUDY A Urine pH 5.0 Urine Specific [place] 1.015 Urine Ketones 1+ H Urine Nitrite NEGATIVE Urine Bilirubin NEGATIVE Urine Urobilinogen 1+ H Urine Leukocyte Esterase NEGATIVE Urine Microscopic RBC 1 Urine Microscopic WBC 7 H Urine Hyaline Casts FEW A Urine Mucus FEW A Urine Hemoglobin NEGATIVE Urine Glucose NEGATIVE Urine Total Protein NEGATIVE Creatine Kinase 139 Creatine Kinase Index 1.8 Creatinine Kinase MB 2.56 H (Mass) Troponin I 0.056 Medications Medication Current Medications Ondansetron HCl (Zofran Inj) 4 mg BRIDGE ORDER PRN IV NAUSEA/VOMITING Last administered on 11/07/18at 08:22; Admin Dose 4 MG; Start 11/07/18 at 05:00; Stop 11/08/18 at 04:59 Acetaminophen (Tylenol Tab) 650 mg ER BRIDGE PRN PO .MILD PAIN 1-3 OR TEMP; Start 11/07/18 at 05:00; Stop 11/08/18 at 04:59 IV Flush (NS 3 ml) 3 ml PER PROTOCOL IV ; Start 11/07/18 at 06:00 Ondansetron HCl (Zofran Inj) 4 mg Q6H PRN IV NAUSEA/VOMITING; Start 11/07/18 at 06:00 Acetaminophen (Tylenol Tab) 650 mg Q6H PRN PO .PAIN 1-3 OR TEMP; Start 11/07/18 at 06:00 Acetaminophen/ Hydrocodone Bitart ([place] (5/325)) 1 tab Q6H PRN PO .MOD PAIN 4- 6; Start 11/07/18 at 06:00 Morphine Sulfate (morphine) 2 mg Q4H PRN IV .SEVERE PAIN 7-10 Last administered on 11/07/18at 12:50; Admin Dose 2 MG; Start 11/07/18 at 06:00 Docusate Sodium (Colace) 100 mg Q12H PRN PO .CONSTIPATION; Start 11/07/18 at 06:00 Magnesium Hydroxide (Milk Of Mag) 30 ml DAILY PRN PO .CONSTIPATION; Start 11/07/18 at 06:00 Lorazepam (Ativan) 0.5 mg Q6H PRN IV ANXIETY; Start 11/07/18 at 06:00 Sodium Chloride 1,000 ml @ 125 mls/hr Q8H IV Last administered on 11/07/18at 08:14; Admin Dose 125 MLS/HR; Start 11/07/18 at 05:50 Albuterol/ Ipratropium (Duoneb) 3 ml Q4H RESP THERAPY PRN HHN SHORTNESS OF BREATH; Start 11/07/18 at 06:00 Piperacillin Sod/ Tazobactam Sod 100 ml @ 200 mls/hr Q6 IVPB Last administered on 11/07/18at 11:52; Admin Dose 200 MLS/HR; Start 11/07/18 at 12:00 Vancomycin HCl (Vanco Iv Per Pharmacy) VANCOMYCIN PER PHARMACY NOTE XX ; Start 11/07/18 at 06:00 Hydralazine HCl (Apresoline) 10 mg Q6H PRN IV ELEVATED BLOOD PRESSURE; Start 11/07/18 at 06:00 Nitroglycerin (Nitroglycerin (Sl Tab) 0.4 Mg) 1 tab Q5M PRN SL ANGINA; Start 11/07/18 at 06:00 Aspirin (Ecotrin) 325 mg DAILY PO Last administered on 11/07/18at 08:14; Admin Dose 325 MG; Start 11/07/18 at 09:00 Vancomycin HCl 250 ml @ 125 mls/hr Q12H IVPB Last administered on 11/07/18at 15:06; Admin Dose 125 MLS/HR; Start 11/07/18 at 15:00 VIKAS RODAS Nov 07, 2018 16:20
[2018-11-07 16:38] VITALS: PULSE 76
--- NOTE | 2018-11-07 17:06 | RADRPT ---
Echocardiogram Report Patient Name: Holly ANSARI ID: [id number] : 1990 (28y 6m)Study Date: 11/07/2018 1:40:10 PM Gender: MAccession #: [id number] Tech: Jeremy Patel [facility] Location: [id number] Ref.Physician: VIKAS RODAS Height(Cm): BSA: Weight(Kg): Quality: AdequateOrder Physician: VIKAS RODAS Account #: Procedures: Echocardiographic Report: Transthoracic echocardiogram examination. Indications: LV FX, R/o effusion. Measurements: 2D/M Mode Doppler Measurement Value Normal Range Measurement Value Normal Range LVIDd 2D 4.9 [ 4.2 - 5.8 ] cm RA Pressure 3.0 mmHg LVIDs 2D 2.7 [ 2.5 - 4.0 ] cm IVSd 2D 0.8 [ 0.6 - 1.0 ] cm AoR Diam 2D 2.6 [ 2.6 - 3.4 ] cm LA Dimen 2D 3.0 [ 3.0 - 4.0 ] cm Findings: Left Ventricle: Normal left ventricular cavity size. Normal left ventricular systolic function. Normal left ventricular wall thickness. The left ventricular ejection fraction is visually estimated at 65 %. Left Atrium: The left atrium is normal in size and appearance. Right Atrium: The right atrium is normal in size and appearance. Mitral Valve: Normal appearance of the mitral valve leaflets. Normal appearance and function of the mitral valve with trace physiologic regurgitation. Aortic Valve: Normal appearance and function of the aortic valve. Tricuspid Valve: Normal appearance of the tricuspid valve. Pericardium: Normal pericardium with no significant pericardial effusion. There is an anterior echo free space consistent with epicardial fat pad. IVC: Normal inferior vena cava appearance and respiratory collapse. Conclusions: Normal left ventricular cavity size. Normal left ventricular systolic function. Normal left ventricular wall thickness. The left ventricular ejection fraction is visually estimated at 65 %. Normal pericardium with no significant pericardial effusion. There is an anterior echo free space consistent with epicardial fat pad. Normal inferior vena cava appearance and respiratory collapse. Electronically Signed By: Bari Torres 2018-11-07 17:06:25 PDT
[2018-11-07 20:00] VITALS: BP 119/61; PULSE 71; PULSE 76; RESP 19
--- NOTE | 2018-11-08 17:02 | DS ---
Date/Time of Note Date/Time of Note DATE: 11/08/18 TIME: 17:00 Discharge Summary Admission/Discharge Info Admit Date/Time Nov 07, 2018 at 04:45 Discharge Date/Time Nov 08, 2018 at 00:00 Discharge Diagnosis Patient eloped 28-year-old male no significant past medical history who presents with buttock pain and findings of a buttock abscess, along with JOAO and elevated troponin. 1. Sepsis secondary to buttock abscess: There is drainage again white blood cell count elevated 21,000. -Continue broad-spectrum antibiotics, ID and surgery consultations obtained but patient eloped 2. Elevated troponin: Patient denies any chest pain, but on admission his troponin first 1 is 0.131. Patient himself denies any prior history of any stroke or heart attacks, no apparent family history of any coronary artery disease. Of note his creatinine is 1.58 -Troponins trending down, elevation may have been secondary to rhabdomyolysis in setting of mild acute kidney injury -Cardiology consultation appreciated 3. Acute kidney injury likely secondary to sepsis -Patient was receiving IV fluids Hospital Course Patient is a 28-year-old male no significant past medical history who presents with buttock pain and findings of a buttock abscess, along with JOAO and elevated troponin. Patient was receiving IV antibiotics and IV fluids, consultations with ID, surgery and cardiology were obtained. Patient eloped on the evening of 11/07/2018. Home Meds Discontinued Scripts Prednisone* (Prednisone*) 10 Mg Tab, 10 MG PO DAILY, #21 TAB take 6 pills tomorrow take 5 pills on the next day take 4 pills on the next day take 3 pills on the next day take 2 pills on the next day take 1 pill on the next day then stop Prov:TINO PAGAN 10/11/18 Primary Care Provider Care Physician No Primary Time spent on discharge: < 30 minutes VIKAS RODAS Nov 08, 2018 17:02
== END 2018-11-08 | disposition left against medical advice (07) | DRG 872 ==
LOC: FTE 03:35 → TEL 04:45 → EDBEDREQSVC 06:48 → EDBEDREQ 07:19
PROVIDERS: ADMIT Hospitalist; ATTEND Internal Medicine
DX: A41.9 Sepsis, unspecified organism (principal); L02.31 Cutaneous abscess of buttock; N17.9 Acute kidney failure, unspecified
CPT/HCPCS: 71045; 80053; 81001; 82550; 82553; 83605; 84439; 84484; 85025; 85610; 85730; 87086; 93005; 93308; J2270; J2405; J2543; J3010; J3370; J7030